=== PATIENT | female | born 1990 | race Caucasian/White ===

== ENCOUNTER → 2017-06-12 | Outpatient (CLI) | payer BC | LOC: COL.CARD 14:20 | DX: R42 Dizziness and giddiness (principal) ==

== ENCOUNTER → 2017-11-14 | Outpatient (CLI) | payer OTHER ==
[~2017-11-14] VITALS: Ht 152.4 cm; Wt 59.1 kg
[~2017-11-14] MED LIST: PRENATAL MVI
[2017-11-15 00:07] VITALS: BP 135/83; PULSE 79; TEMP 97.6
[2017-11-15 00:30] VITALS: BP 115/70; PULSE 86
[2017-11-15 01:16] VITALS: TEMP 98.2
== END ==
LOC: LDRO 23:33
DX: O47.1 False labor at or after 37 completed weeks of gestation (principal); Z3A.39 39 weeks gestation of pregnancy

== ENCOUNTER 2017-11-17 14:42 | Inpatient (IN) | payer OTHER ==
[~2017-11-17] VITALS: Ht 152.4 cm; Wt 59.1 kg
[2017-11-17] VITALS (22 sets, daily range): BP systolic 102–152; BP diastolic 51–78; PULSE 79–133; TEMP 97.9–99
[2017-11-17 16:24] LABS: BASO % 0.4 % (0.0-2.0); EOS % 0.4 % (0-4.0); GRAN # 5.8 (1.4-6.5); GRAN % 70.8 % (42.2-75.2); HEMATOCRIT 37.6 % (37.0-47.0); LYMPH # 1.7 (1.2-3.4); LYMPH % 20.9 % (20.0-51.0); MEAN CELL VOLUME 87 fl (80.0-100.0); MEAN CORPUSCULAR HEMOGLOBIN 30 pg (27.0-31.0); MEAN CORPUSCULAR HGB CONC 35 g/dl (33.0-37.0); MEAN PLATELET VOLUME 9.9 fl (7.4-10.4); MONO # 0.6 (0.1-0.6); MONO % 6.8 % (1.7-9.3); PLATELET COUNT 273 K/mm3 (130-400); REDCELL DISTRIBUTION WIDTH-CV 13.2 % (11.5-14.5)
[2017-11-18] VITALS: BP 102/60; PULSE 100; TEMP 98.2
[2017-11-18 00:30] VITALS: BP 113/68; PULSE 84
[2017-11-18 03:00] VITALS: BP 108/68; PULSE 102; TEMP 97.6
[2017-11-18 10:01] VITALS: BP 101/61; PULSE 88
[2017-11-18 16:30] VITALS: BP 99/64; PULSE 52
[2017-11-18 21:30] VITALS: BP 101/64; PULSE 89; TEMP 98.4
[2017-11-19 09:00] VITALS: BP 97/65; PULSE 56
[2017-11-19] MEDS ORDERED: IBU800 M1 PO (10:20)
== END 2017-11-19 16:20 | disposition home or self-care (01) | DRG 774 ==
LOC: LDRO 14:42 → LDR 15:20 → OB 11-18 00:30
PROVIDERS: Student in an Organized Health Care Education/Training Program
PROC: 10D07Z6 Extraction of Products of Conception, Vacuum, Via Natural or Artificial Opening (ICD-10-PCS; principal; 2017-11-17)
PROC: 0KQM0ZZ Repair Perineum Muscle, Open Approach (ICD-10-PCS; 2017-11-17)
DX: O76 Abnormality in fetal heart rate and rhythm complicating labor and delivery (principal); O99.42 Diseases of the circulatory system complicating childbirth; O70.1 Second degree perineal laceration during delivery; Z37.0 Single live birth; Z3A.40 40 weeks gestation of pregnancy; I49.1 Atrial premature depolarization
CPT/HCPCS: J2590; J7120

== ENCOUNTER → 2017-11-21 | Outpatient (CLI) | payer OTHER ==
[~2017-11-21] MED LIST changes: +IBU800 M1 PO
== END ==
LOC: LAC 10:50
DX: Z39.1 Encounter for care and examination of lactating mother (principal); Z71.89 Other specified counseling

== ENCOUNTER → 2017-11-28 | Outpatient (CLI) | payer OTHER | LOC: LAC 10:36 | DX: Z39.1 Encounter for care and examination of lactating mother (principal); Z71.89 Other specified counseling ==

== ENCOUNTER → 2017-12-05 | Outpatient (CLI) | payer OTHER | LOC: OLC 10:39 | DX: Z39.1 Encounter for care and examination of lactating mother (principal); Z71.89 Other specified counseling ==

== ENCOUNTER → 2017-12-12 | Outpatient (CLI) | payer OTHER | LOC: LAC 10:46 | DX: Z39.1 Encounter for care and examination of lactating mother (principal); Z71.89 Other specified counseling ==